=== PATIENT | male | born 1955 | race Caucasian/White ===

== ENCOUNTER 2022-03-03 06:44 | Day surgery (SDC) | payer OTHER ==
[~2022-03-03] VITALS: Ht 182.9 cm; Wt 93.0 kg
[2022-03-03] MEDS ORDERED: MEPERIDINE 100 MG INJ. 100 MG/ML VIAL ONE (07:58)
[2022-03-03] MEDS ORDERED: SIMETHICONE 40 MG/0.6 ML ML ONE (07:58)
[2022-03-03] MEDS: MIDAZOLAM HCL 5 MG/5 ML VIAL ONE ×4 (08:22→08:45)
[2022-03-03] MEDS ORDERED: DIPHENHYDRAMINE INJ 50 MG/ML VIAL ONE (08:24)
[2022-03-03] MEDS ORDERED: GLUCAGON,HUMAN RECOMBINANT 1 MG VIAL IVP ONE ×2 (08:42→09:00)
[2022-03-03 13:00] VITALS: BP_SYST 89
== END 2022-03-03 10:15 | disposition home or self-care (01) ==
LOC: SDS 06:44 → SMU 07:14 → EDSEX 08:00 → SDS 10:15
PROVIDERS: ATTEND Internal Medicine
DX: Z09 Encounter for follow-up examination after completed treatment for conditions other than malignant neoplasm (principal); D12.3 Benign neoplasm of transverse colon; Z86.010 Personal history of colon polyps; K57.30 Diverticulosis of large intestine without perforation or abscess without bleeding; K64.8 Other hemorrhoids; Z79.899 Other long term (current) drug therapy; Z20.822 Contact with and (suspected) exposure to COVID-19
CPT/HCPCS: 36415; 45381; 45385; 96365; 88305; 99152; 99153; U0003; J1610; G0378; J1200; J2250; J2175; 45384